=== PATIENT | female | born 1970 | race Caucasian/White ===

== ENCOUNTER 2021-11-08 07:25 | Emergency (ER) | payer BC ==
[2021-11-08] MEDS ORDERED: Lisinopril 10 MG Tab PO ONE (08:00)
[2021-11-08] MEDS ORDERED: Hydrochlorothiazide 12.5 MG Cap PO SCH (09:00)
== END 2021-11-08 08:20 | disposition home or self-care (01) ==
LOC: JD.ED 07:25
DX: I10 Essential (primary) hypertension (principal); Z88.0 Allergy status to penicillin; Z88.1 Allergy status to other antibiotic agents; Z88.2 Allergy status to sulfonamides; Z79.82 Long term (current) use of aspirin; Z79.899 Other long term (current) drug therapy
CPT/HCPCS: 99283; A9270